=== PATIENT | female | born 1975 | race Two or more races ===

== ENCOUNTER 2018-01-19 10:15 | Emergency (ER) | payer SELFPAY ==
[~2018-01-19] VITALS: Ht 167.6 cm; Wt 68.0 kg
[2018-01-19 11:06] LABS: BILIRUBIN,URINE NEGATIVE (NEG); CLARITY,URINE CLEAR; COLOR,URINE YELLOW; NITRITE,URINE NEGATIVE (NEG); PROTEIN,URINE NEGATIVE (NEG-TRACE); UROBILINOGEN,URINE 0.2 mg/dL (0.2 mg/dL)
[2018-01-19 11:17] LABS: BACTERIA,URINE 0 /HPF (0-FEW); RBC,URINE >40 /HPF (0-2); SQUAMOUS EPITHELIAL CELL,UR OCC /LPF; WBC,URINE 0 /HPF (0-4)
--- NOTE | 2018-01-19 11:21 | PHYS DOC ---
Past Medical History Past Medical History: No Pertinent History Past Surgical History: No Surgical History Alcohol Use: None Drug Use: None Adult General Chief Complaint Chief Complaint: VAGINAL BLEEDING HPI HPI Patient is a 42 year old female who presents to the ER with complaints of lower abdominal pain and cramping for the last 2 days. She states she is . Her LMP was on 11/29/17, she is G6, P5, A0. Pt reports light vaginal spotting for 3 weeks until it stopped 2 days ago. Last night she began having heavy vaginal bleeding with large clots of blood. She denies any fever, nausea, vomiting, or back pain. Currently, she rates her pain as a 8 out of 10 on the pain scale and describes it as cramping. Review of Systems Review of Systems Constitutional: Denies fever or chills [] GI: Denies nausea, vomiting, or diarrhea; reports lower abdominal pain [] : Denies dysuria or hematuria, [] Musculoskeletal: Denies back pain or joint pain [] Integument: Denies rash or skin lesions [] Neurologic: Denies headache, focal weakness or sensory changes [] All other systems were reviewed and found to be within normal limits, except as documented in this note. Allergies Allergies Allergies Coded Allergies Type Severity Reaction Last Updated Verified No Known Drug Allergies 01/19/18 No Physical Exam Physical Exam Constitutional: Well developed, well nourished, no acute distress, non-toxic appearance. [] HENT: Normocephalic, atraumatic, bilateral external ears normal, oropharynx moist, no oral exudates, nose normal. [] Eyes: normal, no discharge. [] Cardiovascular:Heart rate regular rhythm, no murmur [] Lungs & Thorax: Bilateral breath sounds clear to auscultation [] Pelvic Exam: Poultry Scientist present Orin RN Abdomen: Soft lower abdomen tenderness to palpation External Genitalia: Normal Skin Speculum: Normal vaginal mucosa, Os is open with bleeding present Skin: Warm, dry, no erythema, no rash. [] Back: No tenderness, no CVA tenderness. [] Neurologic: Alert and oriented X 3, normal motor function, normal sensory function, no focal deficits noted. [] Psychologic: Affect normal, judgement normal, mood normal. [] Current Patient Data Vital Signs Vital Signs Date Time Temp Pulse Resp B/P (MAP) Pulse Ox O2 Delivery O2 Flow Rate FiO2 01/19/18 12:30 74 107/63 (78) 98 Room Air 01/19/18 10:38 98.1 18 98.1 Lab Values Laboratory Tests Test 01/19/18 10:45 01/19/18 10:50 01/19/18 10:58 White Blood Count 7.5 x10^3/uL (4.0-11.0) Red Blood Count 4.04 x10^6/uL (3.50-5.40) Hemoglobin 12.7 g/dL (12.0-15.5) Hematocrit 37.7 % (36.0-47.0) Mean Corpuscular Volume 93 fL (79-100) Mean Corpuscular Hemoglobin 32 pg (25-35) Mean Corpuscular Hemoglobin Concent 34 g/dL (31-37) Red Cell Distribution Width 15.9 % (11.5-14.5) H Platelet Count 242 x10^3/uL (140-400) Neutrophils (%) (Auto) 67 % (31-73) Lymphocytes (%) (Auto) 27 % (24-48) Monocytes (%) (Auto) 5 % (0-9) Eosinophils (%) (Auto) 1 % (0-3) Basophils (%) (Auto) 0 % (0-3) Neutrophils # (Auto) 5.0 x10^3uL (1.8-7.7) Lymphocytes # (Auto) 2.0 x10^3/uL (1.0-4.8) Monocytes # (Auto) 0.4 x10^3/uL (0.0-1.1) Eosinophils # (Auto) 0.1 x10^3/uL (0.0-0.7) Basophils # (Auto) 0.0 x10^3/uL (0.0-0.2) Maternal Serum HCG Beta Subunit 3239 mIU/mL (0-5) H Sodium Level 142 mmol/L (136-145) Potassium Level 4.5 mmol/L (3.5-5.1) Chloride Level 106 mmol/L (98-107) Carbon Dioxide Level 28 mmol/L (21-32) Anion Gap 8 (6-14) Blood Urea Nitrogen 8 mg/dL (7-20) Creatinine 0.7 mg/dL (0.6-1.0) Estimated GFR (Cockcroft-Gault) 91.8 BUN/Creatinine Ratio 11 (6-20) Glucose Level 95 mg/dL (70-99) Calcium Level 8.8 mg/dL (8.5-10.1) Total Bilirubin 0.6 mg/dL (0.2-1.0) Aspartate Amino Transferase (AST) 22 U/L (15-37) Alanine Aminotransferase (ALT) 41 U/L (14-59) Alkaline Phosphatase 73 U/L (46-116) Total Protein 7.0 g/dL (6.4-8.2) Albumin 3.8 g/dL (3.4-5.0) Albumin/Globulin Ratio 1.2 (1.0-1.7) Urine Collection Type U cath Urine Color Yellow Urine Clarity Clear Urine pH 7.0 Urine Specific [place] 1.010 Urine Protein Negative mg/dL (NEG-TRACE) Urine Glucose (UA) Negative mg/dL (NEG) Urine Ketones (Stick) Negative mg/dL (NEG) Urine Blood Small (NEG) Urine Nitrite Negative (NEG) Urine Bilirubin Negative (NEG) Urine Urobilinogen Dipstick 0.2 mg/dL (0.2 mg/dL) Urine Leukocyte Esterase Negative (NEG) Urine RBC >40 /HPF (0-2) Urine WBC 0 /HPF (0-4) Urine Squamous Epithelial Cells Occ /LPF Urine Bacteria 0 /HPF (0-FEW) Urine Mucus Slight /LPF POC Urine HCG, Qualitative Hcg positive (Negative) Laboratory Tests 01/19/18 10:45 Laboratory Tests 01/19/18 10:45 EKG EKG [] Radiology/Procedures Radiology/Procedures US: No pole seen, irregular shaped fluid collection in left 1.06 x1.15 x 0.89 cm. [] Course & Med Decision Making Course & Med Decision Making Pertinent Labs and Imaging studies reviewed. (See chart for details) Threatened miscarriage, serial HCG levels, pelvic rest, Follow up with your OBGYN in 1-2 days, have your HCG level rechecked in 48 hours. Patient verbalized an understanding of home care, medications, follow-up, and return to ED instructions and was in agreement with the plan of care. Dragon Disclaimer Dragon Disclaimer This electronic medical record was generated, in whole or in part, using a voice recognition dictation system. Departure Departure Impression: Primary Impression: Threatened in first trimester Disposition: HOME, SELF-CARE Condition: STABLE Referrals: UNKNOWN PCP NAME (PCP) Patient Instructions: Threatened Miscarriage, [id number] Additional Instructions: Pelvic rest, avoid intercourse or any form of vaginal insertion. pelvic rest, Follow up with your OBGYN in 1-2 days, have your HCG level rechecked in 48 hours. Return to the ER if your symptoms worsen. ELLEN CASTLE APRN Jan 19, 2018 11:21
[2018-01-19 12:27] LABS: BASO % 0 % (0-3); EOS # 0.1 x10^3/uL (0.0-0.7); EOS % 1 % (0-3); HEMATOCRIT 37.7 % (36.0-47.0); HEMOGLOBIN 12.7 g/dL (12.0-15.5); LYMPH % 27 % (24-48); MEAN CORPUSCULAR HEMOGLOBIN 32 pg (25-35); MEAN CORPUSCULAR HGB CONC 34 g/dL (31-37); MEAN CORPUSCULAR VOLUME 93 fL (79-100); MONO # 0.4 x10^3/uL (0.0-1.1); MONO % 5 % (0-9); NEUT % 67 % (31-73); PLATELET COUNT 242 x10^3/uL (140-400); RED BLOOD COUNT 4.04 x10^6/uL (3.50-5.40); RED CELL DISTRIBUTION WIDTH 15.9 % (11.5-14.5); WHITE BLOOD COUNT 7.5 x10^3/uL (4.0-11.0)
[2018-01-19 12:30] VITALS: BP 107/63
[2018-01-19 12:44] LABS: CALCIUM 8.8 mg/dL (8.5-10.1); CREATININE 0.7 mg/dL (0.6-1.0); GFR 91.8; POTASSIUM 4.5 mmol/L (3.5-5.1)
[2018-01-19 12:51] LABS: ALBUMIN 3.8 g/dL (3.4-5.0); ALBUMIN/GLOBULIN RATIO 1.2 (1.0-1.7); TOTAL BILIRUBIN 0.6 mg/dL (0.2-1.0)
--- NOTE | 2018-01-19 13:58 | RAD ---
Obstetric pelvic ultrasound 01/19/2018 INDICATION: Bleeding in . COMPARISON: None available. TECHNIQUE: Sonographic evaluation of the pelvis was performed utilizing transabdominal and transvaginal imaging. Grayscale, color Doppler and spectral waveform analysis was utilized. FINDINGS: The uterus measures 8.9 x 5.4 x 5.0 cm. Cervical length measures 3.0 cm. Endometrium measures 18 mm in maximal thickness. There is a fluid collection within the lower uterine segment measuring 11 x 12 x 9 mm without associated decidual reaction. There is no yolk sac identified. No pole is visualized. The right ovary measures 2.8 x 2.2 x 1.9 cm. The left ovary measures 2.9 x 2.0 x 1.4 cm. Arterial and venous waveform identified bilaterally at the time of imaging. No suspicious features are identified. No free fluid within the cul-de-sac. IMPRESSION: Intrauterine gestation is not visualized. According to LMP of 11/29/2017, expected gestational age would be 7 weeks 2 days. Sonographic findings are discordant with LMP. Irregular cystic area within the lower uterine segment may be a gestational sac. However, there is no associated decidual reaction, yolk sac or pole to confirm. Differential considerations would still include an early versus failure versus ectopic . Correlate with beta-hCG. Serial beta hCG and pelvic ultrasound may be of benefit. Electronically signed by: Pau Anand MD (01/19/2018 1:55 PM) [id number]
== END 2018-01-19 13:48 | disposition home or self-care (01) ==
LOC: ER 10:15
DX: O20.0 Threatened abortion (principal); Z3A.01 Less than 8 weeks gestation of pregnancy
CPT/HCPCS: 36415; 76801; 76817; 80053; 81001; 81025; 84702; 85025; 86900; 86901; 99285-25

== ENCOUNTER 2018-01-21 09:52 | Emergency (ER) | payer SELFPAY | END 2018-01-21 10:01 | disposition left against medical advice (07) | LOC: ER 09:52 | DX: R79.89 Other specified abnormal findings of blood chemistry (principal); Z53.21 Procedure and treatment not carried out due to patient leaving prior to being seen by health care provider ==